=== PATIENT | female | born 1995 | race Caucasian/White ===

== ENCOUNTER 2019-07-29 10:33 | Day surgery (SDC) | payer OTHER, SELFPAY ==
[2019-07-07 09:35] VITALS: BMI 26.9
--- NOTE | 2019-07-07 12:18 | HP_ITS ---
Intake Vital Signs 07/07/19 Height 5 ft 4 in 07/07/19 Weight: 157 lb 07/07/19 Body Mass Index (BMI) 26.9 07/07/19 Blood Pressure 109/66 07/07/19 Blood Pressure Location Rt brachial 07/07/19 Blood Pressure Position Sitting 07/07/19 Respiratory Rate 16 Intake Visit Reasons: Gallstones/Sludge US [facility] 06/30 Dermatology Nurse Practitioner Required: No Is patient in pain?: Yes (right upper back) Allergies vancomycin Allergy (Mild, Verified 07/07/19 09:36) Unknown Medications vitamin,calcium,jikpbudz-rlie-nvviu acid tablet 1 tab PO DAILY 07/07/19 [History Confirmed 07/07/19] [facility] Surgical History S/P D&C (status post dilation and curettage) (Acute) S/P sinus surgery (Acute) Social History (Updated 07/07/19 @ 12:18 by Jae Mcgraw MD) Smoking Status: Never smoker alcohol intake: never HPI HPI HPI: KAM DOSS, is a 24 F who presents to the office today for HPI HPI Surgical H&P: Yes HPI: KAM DOSS, is a 24 F who presents to the office today for Evaluation of symptomatic cholelithiasis.Patient states that when she was between 34 and 40 weeks she had an episode of epigastric pain into her back then another episode after she delivered in about 2 weeks ago was her most recent episode this 1 lasted over 2 hours and she has had continual pressure on her right upper scapular area since then. She has had a gallbladder ultrasound which showed a 1.8 cm stone as well as sludge within the gallbladder it was mildly thickened at 4 mm there was no sonographic Solitario sign the common bile duct also measured 3 mm. ROS General General: Yes weight change and fatigue; no appetite, colon cancer, breast cancer or weakness HEENT HEENT: No difficulty swallowing, eye injury, eye surgery, swollen glands or hoarseness Endo Endocrine: No thyroid disease, diabetes mellitus, thyroid cancer, Hair loss, heat intolerance or cold intolerance Skin Skin: No rash or changing moles Breast Breast: No left breast lump, right breast lump, nipple discharge, breast pain, abnormal mammogram, abnormal US or breast enlargement Musc Musculoskeletal: Yes back problems; no arthritis, rheumatoid arthritis, gout or joint pain Cardio Cardiovascular: No murmur, pacemaker, heart disease, atrial fibrillation, high blood pressure, heart attack, heart stent, palpitations, shortness of breat with exertion or chest pain Psych Psychiatric: No depression, anxiety or hearing voices Resp Respiratory: No shortness of breath, No sleep apnea, No cough, No COPD, No asthma, No emphysema, No wheezing Gastro Gastrointestinal: No abdominal pain, No nausea or vomiting, No diarrhea, No constipation, No blood in stool, No acid reflux, No hemorrhoids, No ulcers, Yes gallbladder problem, No black,tarry stools Elvin Hematologic: No blood thinners, No blood disorders, No bleeding, No anemia, No blood clots Neuro Neurologic: No system reviewed and no additional complaints, except as docu, No as per HPI, No abnormal walking, No abnormal hearing, No abnormal movements, No abnormal speech, No behavioral changes, No burning sensations, No confusion, No seizure-like activity, No unsteadiness, No dizziness, No localized weakness, No frequent falls, No headache(s), No lack of coordination, No loss of vision, No memory loss, No numbness, No other visual disturbances, No radiating pain, No restless legs, No sensory deficit, No fainting, No tingling, No tremor(s), No weakness, No other Exam Const General: no acute distress, well developed, well hydrated Orientation: oriented to person, oriented to place, oriented to time [facility] Head: normocephalic, atraumatic Ears: external ears normal Mouth: moist mucous membranes Eyes Sclera: sclerae normal Pupils: normal by confrontation Neck Neck: no lymphadenopathy noted Neck mass: No Thyroid: thyroid normal, symmetrical Chest Chest palpation & inspection: normal inspection of the chest Breast Palpation: No nipple discharge Resp Effort & Inspection: normal respiratory effort Auscultation: clear to auscultation bilaterally Percussion: percussion normal Cardio Rate: regular rate Rhythm: regular rhythm Heart Sounds: no murmurs GI Palpation: soft, no hepatosplenomegaly, no masses, tender Auscultation: normal bowel sounds Rectal Exam: other Other: Rectal exam deferred. Extrem General: normal to inspection, no clubbing, cyanosis or edema Assessment & Plan Problems 1. Calculus of gallbladder with chronic cholecystitis without obstruction K80.10 Plan Reviewed the anatomy with the patient and discussed the procedure: laparoscopic cholecystectomy with possible cholangiograms, possible open. Review risks including but not limited to bleeding, infection, hernia, bile leak, retained gallstones requiring another procedure ERCP- Endoscopic Retrograde Cholangiopancreatography, injury to another organ (bile ducts, common bile duct, small bowel, etc.) and conversion to an open procedure. All questions were answered. Coding Level of Care Code Off vis,new,level 3 Diagnoses Calculus of gallbladder with chronic cholecystitis without obstruction K80.10 ??Cholelithiasis location: gallbladder ??Cholecystitis acuity: chronic 07/07/19 1218 <Electronically signed by Jae jones MD> Date _ Jae Mcgraw MD I have re-examined the patient. There are no clinical changes since date of exam.
[2019-07-29] VITALS (8 sets, daily range): BP systolic 106–122; BP diastolic 44–74; PULSE 54–75; RESP 16; TEMP 36.2–36.7; O2SAT 92–100; BMI 26.1
--- NOTE | 2019-07-29 10:50 | EKG12_ITS ---
Test Reason : PRE OP Blood Pressure : / mmHG Vent. Rate : 058 BPM Atrial Rate : 058 BPM P-R Int : 170 ms QRS Dur : 082 ms QT Int : 448 ms P-R-T Axes : 035 075 058 degrees QTc Int : 439 ms Sinus bradycardia Otherwise normal ECG No previous ECGs available Confirmed by MELLISSA SMITH, DAVID ([id number]), editor managing newspaper LESLI WILEY ([id number]) on 07/30/2019 12:01:26 PM Referred By: Jae Mcgraw Confirmed By:DAVID MALLOY MD
[2019-07-29 11:18] LABS: Internal QC Validated? YES +Cl - CLEAR BKGD; Pregnancy, Urine Negative Negative
[2019-07-29] MEDS: Lactated Ringers 1,000 ML 100 ML IV ×3 (11:35→14:31)
[2019-07-29] MEDS: Cefazolin 2 GM in 0.9% Normal Saline 100 ML IV (11:55)
--- NOTE | 2019-07-29 11:55 | GALL_PTH ---
PATIENT: KAM DOSS LOC: [facility] U#:[id number] AGE/SX: 24/F ROOM: RE07/29/[address]: Dr. Jae Mcgraw MD : [id number] BED: DIS: 07/29/2019 SPEC #: [id number] RECD: 07/29/19 14:29 STATUS: CAMILO RETrinity #: [id number] RAHAT: 07/29/19 11:[address]: Jae Mcgraw DEPT: SURGICAL PATHOLOGY RECD BY: Geoffrey Mitchell ENTERED: 07/30/19 09:56 SP TYPE: MIMI COTTO DR: Dr. Landon Bowens MD Tissues: Gallbladder, NOS Procedures: Surgery Specimen Level III HEADER OPERATION: Robotic cholecystectomy PRE-OP DIAGNOSIS: Calculus of gallbladder with chronic cholecystitis without obstruction K80.10 TISSUE SUBMITTED: Gallbladder MICROSCOPIC DIAGNOSIS Gallbladder, cholecystectomy: Chronic cholecystitis, cholelithiasis and cholesterolosis. A minute lymph node with reactive changes. KONRAD:nona 07/31/19 MICROSCOPIC DESCRIPTION Slides are reviewed. GROSS DESCRIPTION Received is one container labeled with the patient's name and designated gallbladder. The specimen consists of a gallbladder measuring 7.5 cm in length and up to 2 cm in diameter. The external surface is pink-garcia, smooth and glistening for the most part. Focally it is granular, hemorrhagic and contains cautery artifact. The gallbladder contains a small amount of green-yellow mucoid bile and two stones; one mulberry yellow stone measuring 0.4 cm in greatest dimension and one ovoid, greenish-brown stone measuring 2 cm in greatest dimension. The mucosa is bile-stained and without any mass lesions. The gallbladder wall measures up to 0.4 cm in thickness. The mucosa also shows several yellowish streaks consistent with cholesterolosis. Librarian Head sections from the gallbladder and the cystic duct are submitted in one cassette. / KONRAD:nona 07/30/19 TC:3 CPT: 77214
[2019-07-29] MEDS: 0.9% Normal Saline (Pres. free 10 ML Vial (13:20)
[2019-07-29] MEDS: BUPIVACAINE LIPOSOME/PF 20 ML VIAL OPERA.SITE (13:20)
--- NOTE | 2019-07-29 13:25 | OP.PCM_ITS ---
Problem List (1) Calculus of gallbladder with chronic cholecystitis without obstruction Status: Chronic Report of Operation Date of Procedure: 07/29/19 Pre-Operative Diagnosis: Chronic cholecystitis with cholelithiasis Post-Operative Diagnosis: Same Surgery/Procedure Performed:: Robotic assisted laparoscopic cholecystectomy Type of Anesthesia:: General Anesthesiologist: Aidan Nayak Specimen's removed: Gallbladder Estimated Blood Loss (mL): < 25 cc Fluids Replaced: 1200 cc lr Description of Procedure: Patient was brought into the operating room. Placed in the supine position. Under excellent general endotracheal ovation the abdomen was sterilely prepped and draped in usual fashion. Local was injected infraumbilically. Dissection was carried down to the fascia. The fascia grasped with [place]. Varies needle was placed inside the abdomen. The abdomen was insufflated to 15 torr. A 10/12 trocar was placed without difficulty. It was flank on both sides by 2 #8 trochars both placed under direct visualization without injury to underlying structures and then further laterally on the right and another #5 trocar under direct visualization without underlying injury to any structures. Fundus of the gallbladder was grasped and retracted in cephalad direction. The bed was then placed in the head up and rotated to the right position. The robot was brought in and docked appropriately. I then dissected the cystic duct free placing hemoclips proximally and distally and ligated the duct. Identified the cystic artery placed hemoclips proximally distally and ligated the artery. I deliver the gallbladder from the gallbladder bed with use of electrocautery and had no spillage of bile or stones. Placed a specimen specimen bag and delivered through the umbilical port without difficulty. Reinspection of the liver showed to be good hemostasis. The robot was undocked trochars removed under direct visualization. Fascia the umbilical port was closed with a fidlal-cl-zytjs stitch of 0 Vicryl. Skin incisions were closed with some particular stitches of 4-0 Monocryl. Steri-Strips were applied sterile dressings were applied and the patient tolerated the procedure well. - Admit VTE Documentation VTE Present on Admission: No VTE Mechan Device Prophylaxis: SCD's VTE Pharm Prophylaxis ordered?: No Reason prophylaxis not ordered:: Treatment Not Indicated
--- NOTE | 2019-07-29 13:31 | PCM.DC.GB ---
Discharge Diet: Light diet - advance as tolerated Discharge Activity: May Not Drive - for 2-3 days or while taking narcotic pain medications., - - Do not drive, work heavy equipment or sign legal documents for 24 hours. May shower in (days): 1 - with the bandage in place. Additional Activity Instructions:: Pain medication may cause nausea. You should typically eat light foods as you take your pain medications. Pain medication may also cause constipation. If this is a problem for you, please discuss with your doctor. Call your doctor if your incision/area has: Continuous Slow Oozing, Sudden Increased Bleeding, Increased Pain/ Swelling, Increased Redness, Foul Smelling Discharge Call your doctor if you observe: Fever of 101 or Higher Suture Line Care: Avoid Pulling/Pushing, Avoid Pinching/Bending Additional Dressing/Incision Instructions:: Leave operative bandaids on for 2 days. When you remove dressing, leave Steri-Strips on until your follow-up appointment, or until the Steri-Strips fall off on their own. Allergies/Adverse Reactions: Allergies vancomycin Allergy (Mild, Verified 07/29/19 11:24) Unknown Medications to take at Discharge vitamin,calcium,iemszjnu-iisi-kwkya acid tablet 1 tab PO DAILY 07/07/19 Oxycodone HCl/Acetaminophen [Percocet 5/325] 1 - 2 tablet PO Q4H PRN PRN 7 Days #30 tablet 07/29/19 The following prescriptions were given: Oxycodone HCl/Acetaminophen [Percocet 5/325] 1 - 2 tablet PO Q4H PRN PRN 7 Days #30 tablet PRN Reason: Pain Transmission Status: Received by [facility]/pharmacy #[id number] Primary Care Physician: Landon Bowens [Primary Care Provider] - Test Results: Test results from this visit will be discussed in further detail at your follow-up appointment, if applicable. Please Follow Up With: Jae Mcgraw MD - Please call [phone] to schedule an appointment. When: 7 days after your surgery.
[2019-07-29] MEDS: Ibuprofen 400 MG Tablet 800 MG PO (16:45)
== END 2019-07-29 17:11 | disposition home or self-care (01) ==
LOC: SDC 10:34 → AC 10:36
PROVIDERS: Anesthesiology; Family Provider Family Medicine; PCP Family Medicine; Referring Provider Surgery; Visit Provider Surgery
PROC: 0FT44ZZ Resection of Gallbladder, Percutaneous Endoscopic Approach (ICD-10-PCS; CPT 47562; principal; 2019-07-29 11:35)
DX: K80.10 Calculus of gallbladder with chronic cholecystitis without obstruction (principal)
CPT/HCPCS: 00790; 47562; S2900; 81025; 88304; 93005; J7120; J2405; J3490